=== PATIENT | male | born 1970 | race Caucasian/White ===

== ENCOUNTER 2022-04-20 20:47 | Emergency (ER) | payer SELFPAY ==
[2022-04-20] MEDS ORDERED: cefTRIAXone 1 GM Vial IM ONE (23:38)
== END 2022-04-20 23:58 | disposition home or self-care (01) ==
LOC: MW.ED 20:47
DX: L03.115 Cellulitis of right lower limb (principal); I10 Essential (primary) hypertension; Z79.899 Other long term (current) drug therapy
CPT/HCPCS: 93971; 96372; 99283; J0696